=== PATIENT | female | born 1995 | race African-American/Black ===

== ENCOUNTER → 2017-01-18 | Outpatient (CLI) | payer SELFPAY | END | disposition home or self-care (01) | LOC: RAD.S 12:51 | DX: R10.2 Pelvic and perineal pain (principal); N85.4 Malposition of uterus; N83.201 Unspecified ovarian cyst, right side; N32.89 Other specified disorders of bladder ==

== ENCOUNTER 2017-01-24 21:47 | Emergency (ER) | payer SELFPAY ==
--- NOTE | 2017-01-25 19:18 | ER ---
ADMIT: 01/24/2017 RM/LOC: ER [facility] MR#: [id number] [id number] [address] [place]IE[place] [address] Emergency Room Report SEX: F AGE: 21 : 1995 DATE: 01/24/2017 HISTORY OF PRESENT ILLNESS: The patient is a 21-year-old female, came to the ER with chief complaint of cough, runny nose, sore throat for the last 3 days. The patient also complains of subjective fever. Vaccination is up-to-date. PHYSICAL EXAMINATION: VITAL SIGNS: The patient was afebrile in the ER. HEENT: Head and neck, has clear rhinorrhea with pharyngeal erythema without any exudates. Trachea is midline. LUNGS: Clear bilaterally. There is no anterior or cervical lymphadenopathy. HEART: Normal S1, S2. ABDOMEN: Soft abdomen. SKIN: There are no rashes on the skin. The patient received pseudoephedrine in the ER, p.o. The patient was negative for influenza A and B antigen. The patient was discharged to home with return precautions, prescription for pseudoephedrine and advised on taking Tylenol if she becomes fever and follow up with the primary doctor as needed. Neil Hernandez MD/ sajan JOB #: [id number] CC: Neil Hernandez MD, Attending Physician Sophie Hernandez, Family Physician
== END 2017-01-24 23:50 | disposition home or self-care (01) ==
LOC: ER 21:47
DX: J06.9 Acute upper respiratory infection, unspecified (principal); F17.210 Nicotine dependence, cigarettes, uncomplicated; Z88.0 Allergy status to penicillin; Z79.899 Other long term (current) drug therapy